=== PATIENT | female | born 1985 | race American Indian/Alaskan Native ===

== ENCOUNTER 2017-01-21 04:16 | Emergency (ER) | payer MEDICAID, OTHER ==
[2017-01-21] MEDS ORDERED: Sodium Chloride 0.9% 1,000 ML IV ONE ×2 (04:21→04:59)
[2017-01-21] MEDS ORDERED: Ondansetron 4 MG/2 ML SDV IV ONE ×2 (04:21→04:58)
[2017-01-21] MEDS ORDERED: Ketorolac 30 MG/ML SDV IVPUSH ONE (04:24)
[2017-01-21] MEDS ORDERED: Iopamidol 612 MG/ML 100 ML Bottle IVPUSH ONE (04:35)
[2017-01-21] MEDS ORDERED: HYDROmorphone 1 MG/ML Syringe IVPUSH ONE (04:41)
[2017-01-21] MEDS ORDERED: Pantoprazole 40 MG Vial IVPUSH ONE (04:42)
[2017-01-21 04:50] LABS: CHLORIDE,CL 101 mmol/L (101-111); SODIUM,NA 136 mmol/L (135-145)
--- NOTE | 2017-01-21 04:50 | EDM.PDOC ---
ED HPI GI/ABDOMINAL - General Chief Complaint: Genitourinary Problem Stated Complaint: IN BY AMBULANCE Time Seen by Provider: 01/21/17 04:20 Source of Information: Reports: Patient History Limitations: Reports: No limitations - History of Present Illness INITIAL COMMENTS - FREE TEXT/NARRATIVE: c/o pain to left flank for 2 days, vomiting last wyatt. chills. urinary incontinence with coughing. Has not been able to anything down and unable to sleep. Pain location varies . One time pointing to alireza, then lower abd, LUQ and epigastric area. Had CT one month ago and in follow up in clinic at [facility] was told she had kidney stones. CT report reviewed clearly notes no stones. Location: LUQ (left) Quality: Reports: stabbing Severity: moderate - Related Data Allergies/ADRs: Allergies Allergy/AdvReac Type Severity Reaction Status Date / Time latex Allergy Mild Rash Verified 02/25/16 11:50 Home Meds: Home Meds Acetaminophen [Tylenol] 650 mg PO Q6HR PRN 02/25/16 [History] Gabapentin [Neurontin] 100 mg PO TID 10/01/16 [History] Past Medical History Respiratory History: Reports: Asthma Other Genitourinary History: vaginal cyst Musculoskeletal History: Reports: Back pain, chronic Psychiatric History: Reports: Addiction Endocrine/Metabolic History: Reports: Obesity/BMI 30+ Immunologic History: Reports: HIV Other Immunologic History: has HIV Other Dermatologic History: cyst of left buttocks - Infectious Disease History Infectious Disease History: Reports: HIV-Human immunodeficiency virus - Past Surgical History HEENT Surgical History: Reports: Tonsillectomy GI Surgical History: Reports: Appendectomy Social & Family History - Family History Family Medical History: Noncontributory - Tobacco Use Smoking Status *Q: Current Every Day Smoker Years of Tobacco use: 17 Packs/Tins Daily: 0.5 Used Tobacco, but Quit: No Second Hand Smoke Exposure: Yes - Caffeine Use Caffeine Use: Reports: Coffee, Energy drinks, Soda - Alcohol Use Days Per Week of Alcohol Use: 0 - Recreational Drug Use Recreational Drug Use: Yes Drug Use in Last 12 Months: Yes Recreational Drug Type: Reports: Marijuana/Hashish Recreational Drug Use Frequency: Daily Recreational Drug Last Use: 9 days ago - Living Situation & Occupation Living situation: Reports: with significant other Occupation: unemployed ED ROS GENERAL - Review of Systems Review Of Systems: See Below Constitutional: Reports: chills HEENT: Reports: Throat pain Respiratory: Reports: No Symptoms Cardiovascular: Reports: No symptoms GI/Abdominal: Reports: Abdominal pain : Reports: incontinence Musculoskeletal: Reports: back pain Skin: Reports: no symptoms Neurological: Reports: No Symptoms Psychiatric: Reports: No symptoms ED EXAM, GI/ABD - Physical Exam Exam: See Below Exam Limited By: No limitations General Appearance: anxious, moderate distress Eyes: bilateral: EOMI Ears: normal external exam Nose: normal inspection Throat/Mouth: Normal inspection Head: atraumatic, normocephalic Neck: normal inspection Respiratory/Chest: no respiratory distress Cardiovascular: normal peripheral pulses GI/Abdominal: normal bowel sounds, soft, tenderness (epigastric LUQ, reported in ambuance was "throwing up blood" Noted she does this every time she ahd vomiting ). No: no distention, tympanic bowel sounds Back Exam: normal inspection. No: CVA tenderness (L), CVA tenderness (R) Extremities: normal inspection Neurological: alert, oriented Psychiatric: anxious Skin Exam: Warm, Dry, Intact Course - Vital Signs Last Recorded V/S: Last Vital Signs Temp 98.2 F 01/21/17 06:00 Pulse 84 01/21/17 06:00 Resp 18 01/21/17 06:00 BP 105/65 01/21/17 06:00 Pulse Ox 100 01/21/17 06:00 - Orders/Labs/Meds Orders: Active Orders 24 hr Category Date Time Status Abdomen Pelvis w wo Cont [CT] Urgent Exams 01/21/17 04:34 Ordered CULTURE STREP A CONFIRMATION [RM] Stat Lab 01/21/17 04:45 Results DRUG SCREEN URINE BIORAD [URCHEM] Stat Lab 01/21/17 06:00 Received STREP SCRN A RAPID W CULT CONF [RM] Stat Lab 01/21/17 04:45 Results Labs: Laboratory Tests 01/21/17 01/21/17 01/21/17 Range/Units 04:23 04:23 04:23 WBC 13.0 H (5.0-10.0) 10^3/uL RBC 5.82 H (4.2-5.4) 10^6/uL Hgb 14.9 (12.0-16.0) g/dL Hct 43.9 (37.0-47.0) % MCV 75.4 L (80-100) fL MCH 25.6 L (27.0-34.0) pg MCHC 33.9 (33.0-35.0) g/dL Plt Count 402 (150-450) 10^3/uL Neut % (Auto) 73.5 (42.2-75.2) % Lymph % (Auto) 18.7 L (20.5-50.1) % [place] % (Auto) 7.4 (2-8) % Eos % (Auto) 0.3 L (1.0-3.0) % Baso % (Auto) 0.1 (0.0-1.0) % Sodium 136 (135-145) mmol/L Potassium 3.4 L (3.6-5.0) mmol/L Chloride 101 (101-111) mmol/L Carbon Dioxide 24.0 (21.0-31.0) mmol/L Anion Gap 14.4 BUN 10 (7-18) mg/dL Creatinine 0.6 (0.6-1.3) mg/dL Est Cr Clr Drug Dosing 132.11 mL/min Estimated GFR (MDRD) > 60 BUN/Creatinine Ratio 16.66 Glucose 141 H (74-105) mg/dL Calcium 9.4 (8.4-10.2) mg/dl Total Bilirubin 0.5 (0.2-1.0) mg/dL AST 18 (10-42) IU/L ALT 13 (10-60) IU/L Alkaline Phosphatase 89 (42-121) IU/L C-Reactive Protein 0.9 (0.0-1.3) mg/dL Total Protein 9.0 H (6.7-8.2) g/dl Albumin 4.6 (3.2-5.5) g/dl Globulin 4.4 Albumin/Globulin Ratio 1.05 Amylase 62 (28-100) U/L Lipase 23 (22-51) U/L HCG, Qual Negative Urine Color (YELLOW) Urine Appearance (CLEAR) Urine pH (5.0-9.0) Ur Specific [place] (1.005-1.030) Urine Protein (NEGATIVE) Urine Glucose (UA) (NEGATIVE) Urine Ketones (NEGATIVE) Urine Occult Blood (NEGATIVE) Urine Nitrite (NEGATIVE) Urine Bilirubin (NEGATIVE) Urine Urobilinogen (0.2-1.0) mg/dL Ur Leukocyte Esterase (NEGATIVE) Urine RBC /HPF Urine WBC (0-5/HPF) /HPF Ur Epithelial Cells /HPF 01/21/17 Range/Units 06:00 WBC (5.0-10.0) 10^3/uL RBC (4.2-5.4) 10^6/uL Hgb (12.0-16.0) g/dL Hct (37.0-47.0) % MCV (80-100) fL MCH (27.0-34.0) pg MCHC (33.0-35.0) g/dL Plt Count (150-450) 10^3/uL Neut % (Auto) (42.2-75.2) % Lymph % (Auto) (20.5-50.1) % [place] % (Auto) (2-8) % Eos % (Auto) (1.0-3.0) % Baso % (Auto) (0.0-1.0) % Sodium (135-145) mmol/L Potassium (3.6-5.0) mmol/L Chloride (101-111) mmol/L Carbon Dioxide (21.0-31.0) mmol/L Anion Gap BUN (7-18) mg/dL Creatinine (0.6-1.3) mg/dL Est Cr Clr Drug Dosing mL/min Estimated GFR (MDRD) BUN/Creatinine Ratio Glucose (74-105) mg/dL Calcium (8.4-10.2) mg/dl Total Bilirubin (0.2-1.0) mg/dL AST (10-42) IU/L ALT (10-60) IU/L Alkaline Phosphatase (42-121) IU/L C-Reactive Protein (0.0-1.3) mg/dL Total Protein (6.7-8.2) g/dl Albumin (3.2-5.5) g/dl Globulin Albumin/Globulin Ratio Amylase (28-100) U/L Lipase (22-51) U/L HCG, Qual Urine Color Yellow (YELLOW) Urine Appearance Clear (CLEAR) Urine pH 5.5 (5.0-9.0) Ur Specific [place] <= 1.005 (1.005-1.030) Urine Protein 30 H (NEGATIVE) Urine Glucose (UA) Negative (NEGATIVE) Urine Ketones Trace H (NEGATIVE) Urine Occult Blood Trace-intact H (NEGATIVE) Urine Nitrite Negative (NEGATIVE) Urine Bilirubin Negative (NEGATIVE) Urine Urobilinogen 0.2 (0.2-1.0) mg/dL Ur Leukocyte Esterase Negative (NEGATIVE) Urine RBC 0-5 /HPF Urine WBC Not seen (0-5/HPF) /HPF Ur Epithelial Cells Few /HPF Meds: Medications Discontinued Medications Generic Name Dose Route Start Last Admin Trade Name Freq PRN Reason Stop Dose Admin Hydromorphone HCl 1 mg 01/21/17 04:41 01/21/17 04:49 Dilaudid IVPUSH 01/21/17 04:42 1 mg ONETIME ONE Administration Sodium Chloride 1,000 mls @ 999 mls/hr 01/21/17 04:21 01/21/17 04:29 Normal Saline IV 01/21/17 05:21 999 mls/hr .BOLUS ONE Administration Sodium Chloride 1,000 mls @ 999 mls/hr 01/21/17 04:59 01/21/17 05:02 Normal Saline IV 01/21/17 05:59 999 mls/hr .BOLUS ONE Administration Iopamidol 100 ml 01/21/17 04:35 Isovue-300 (61%) IVPUSH 01/21/17 04:36 ONETIME ONE Ketorolac Tromethamine 30 mg 01/21/17 04:24 01/21/17 04:29 Toradol IVPUSH 01/21/17 04:25 30 mg ONETIME ONE Administration Ondansetron HCl 4 mg 01/21/17 04:21 01/21/17 04:30 Zofran IV 01/21/17 04:22 4 mg ONETIME ONE Administration Ondansetron HCl 4 mg 01/21/17 04:58 01/21/17 05:03 Zofran IV 01/21/17 04:59 4 mg ONETIME ONE Administration Pantoprazole Sodium 80 mg 01/21/17 04:42 01/21/17 04:55 Protonix Iv IVPUSH 01/21/17 04:43 80 mg .BOLUS ONE Administration Departure - Departure Time of Disposition: 06:21 Disposition: Home, Self-Care 01 Condition: good Clinical Impression: Abdominal pain Qualifiers: Abdominal location: unspecified location Qualified Code(s): R10.9 - Unspecified abdominal pain Nausea & vomiting Qualifiers: Vomiting type: bilious vomiting Qualified Code(s): R11.14 - Bilious vomiting Instructions: Gastritis, Adult, [id number] Forms: ED Department Discharge Additional Instructions: increase fluid intake. no solid food x 4 hours then few small bites, bland low fat diet clinc follow up in one day if symptoms not improving izofran ODT 4mg one every 6 hours as needed for nausea #4 - My Orders Last 24 Hours: My Active Orders 01/21/17 04:34 Abdomen Pelvis w wo Cont [CT] Urgent 01/21/17 04:45 CULTURE STREP A CONFIRMATION [RM] Stat STREP SCRN A RAPID W CULT CONF [RM] Stat 01/21/17 06:00 DRUG SCREEN URINE BIORAD [URCHEM] Stat - Assessment/Plan Last 24 Hours: My Active Orders 01/21/17 04:34 Abdomen Pelvis w wo Cont [CT] Urgent 01/21/17 04:45 CULTURE STREP A CONFIRMATION [RM] Stat STREP SCRN A RAPID W CULT CONF [RM] Stat 01/21/17 06:00 DRUG SCREEN URINE BIORAD [URCHEM] Stat
[2017-01-21 06:00] VITALS: BP 105/65
[2017-01-21] MEDS: Metoclopramide 10 MG/2 ML SDV IVPUSH ONE ×2 (06:31→06:55)
[2017-01-21] MEDS ORDERED: Metoclopramide 10 MG/2 ML SDV IM ONE (06:35)
== END 2017-01-21 07:00 | disposition home or self-care (01) ==
LOC: DL.ED 04:16
DX: R10.12 Left upper quadrant pain (principal); R11.14 Bilious vomiting; F17.210 Nicotine dependence, cigarettes, uncomplicated; Z91.040 Latex allergy status
CPT/HCPCS: 36415; 74178; 80053; 80305; 81001; 82150; 83690; 84703; 85025; 86140; 87081; 87430; 96361; 96372; 96374; 96375; 96376; 99284; C9113; J1170; J1885; J2405; J2765; J7030; Q9967

== ENCOUNTER 2017-04-27 09:47 | Emergency (ER) | payer MEDICAID ==
[2017-04-27 09:56] VITALS: BP 129/91
[2017-04-27] MEDS ORDERED: Acetaminophen/HYDROcodone 325-5 MG Tab PO ONE (10:13)
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
--- NOTE | 2017-04-27 10:48 | CR ---
Clinical history: 31-year-old female right knee pain. Interpretation: Knee joint symmetrically spaced without appreciable change since previous exam 16 July 2014 i.e. no new sign of right knee fracture, dislocation or radiopaque loose joint body. Chronic mild chondr omalacia patella. No arthritic spurs ("osseous fragment adjacent right patella" not appreciated without sunrise view t phillip). No foreign bodies.
== END 2017-04-27 11:12 | disposition home or self-care (01) ==
LOC: DL.ED 09:47
DX: S83.401A Sprain of unspecified collateral ligament of right knee, initial encounter (principal); J45.909 Unspecified asthma, uncomplicated; E66.9 Obesity, unspecified; B20 Human immunodeficiency virus [HIV] disease; F17.210 Nicotine dependence, cigarettes, uncomplicated; Z98.890 Other specified postprocedural states; Z91.040 Latex allergy status; Z90.49 Acquired absence of other specified parts of digestive tract; Y04.0XXA Assault by unarmed brawl or fight, initial encounter
CPT/HCPCS: 73560; 99283; A9270

== ENCOUNTER 2017-07-17 09:23 | Emergency (ER) | payer MEDICAID ==
[2017-07-17 09:52] VITALS: BP 140/91
--- NOTE | 2017-07-17 09:53 | EDM.PDOC ---
ED HPI GENERAL MEDICAL PROBLEM - General Chief Complaint: Lower Extremity Injury/Pain Stated Complaint: BUCKED OFF HORSE. R ANKLE/KNEE PAIN Time Seen by Provider: 07/17/17 09:53 Source of Information: Reports: Patient History Limitations: Reports: No Limitations - History of Present Illness INITIAL COMMENTS - FREE TEXT/NARRATIVE: Patient states she was riding a horse on Thursday. When she was getting off she touched the horses flank causing the horse to matias her off. She was not kicked. She landed on the right ankle/foot. She did not hit her head or lose consciousness. She states the pain is excruciating at a 10/10. She has been walking and bearing weight on the affected foot. She states she has an old ACL tear in the affected limb as well, and the knee is swollen. She states very little pain in the right knee. Onset Date: 07/13/17 Duration: Constant, Getting Worse Location: Reports: Lower Extremity, Right Quality: Reports: Throbbing Severity: Moderate Improves with: Reports: None Worsens with: Reports: Movement Context: Reports: Activity Associated Symptoms: Reports: No Other Symptoms Right Ankle Pain Score (Numeric/FACES): 6 - Related Data Allergies Allergy/AdvReac Type Severity Reaction Status Date / Time latex Allergy Mild Rash Verified 04/27/17 09:52 Home Meds: Home Meds Acetaminophen [Tylenol] 650 mg PO Q6HR PRN 02/25/16 [History] Gabapentin [Neurontin] 100 mg PO TID 10/01/16 [History] Past Medical History Respiratory History: Reports: Asthma Other Genitourinary History: vaginal cyst Musculoskeletal History: Reports: Back Pain, Chronic Psychiatric History: Reports: Addiction Endocrine/Metabolic History: Reports: Obesity/BMI 30+ Immunologic History: Reports: HIV Other Immunologic History: has HIV Other Dermatologic History: cyst of left buttocks - Infectious Disease History Infectious Disease History: Reports: HIV-Human Immunodeficiency Virus - Past Surgical History HEENT Surgical History: Reports: Tonsillectomy GI Surgical History: Reports: Appendectomy Social & Family History - Family History Family Medical History: Noncontributory - Tobacco Use Smoking Status *Q: Current Every Day Smoker Years of Tobacco use: 17 Packs/Tins Daily: 1 Used Tobacco, but Quit: No Second Hand Smoke Exposure: Yes - Caffeine Use Caffeine Use: Reports: Coffee, Soda - Alcohol Use Days Per Week of Alcohol Use: 1 Number of Drinks Per Day: 1 Total Drinks Per Week: 1 - Recreational Drug Use Recreational Drug Use: Yes Drug Use in Last 12 Months: Yes Recreational Drug Type: Reports: Marijuana/Hashish Recreational Drug Use Frequency: Daily Recreational Drug Last Use: 9 days ago - Living Situation & Occupation Living situation: Reports: with Significant Other Occupation: Unemployed Review of Systems - Review of Systems Review Of Systems: ROS reveals no pertinent complaints other than HPI. ED EXAM, GENERAL - Physical Exam Exam: See Below Exam Limited By: No Limitations General Appearance: Alert Head: Atraumatic Neck: Normal Inspection Respiratory/Chest: No Respiratory Distress, Lungs Clear, Normal Breath Sounds Cardiovascular: Normal Peripheral Pulses, Regular Rate, Rhythm GI/Abdominal: Normal Bowel Sounds Back Exam: Normal Inspection Extremities: Pedal Edema, Joint Swelling, Limited Range of Motion, Other (Right foot swelling and ecchymosis, right ankle swelling) Neurological: Alert, Oriented Psychiatric: Normal Affect, Normal Mood Skin Exam: Warm, Dry, Intact Lymphatic: No Adenopathy Course - Vital Signs Last Recorded V/S: Last Vital Signs Temp 98.7 F 07/17/17 09:35 Pulse 119 H 07/17/17 09:35 Resp 18 07/17/17 09:35 BP 140/91 H 07/17/17 09:35 Pulse Ox 98 07/17/17 09:35 - Orders/Labs/Meds Orders: Active Orders 24 hr Category Date Time Status Ankle 2V Rt [CR] Urgent Exams 07/17/17 09:51 Taken Foot Comp Min 3V Rt [CR] Urgent Exams 07/17/17 09:51 Taken Meds: Medications Discontinued Medications Generic Name Dose Route Start Last Admin Trade Name Freq PRN Reason Stop Dose Admin Oxycodone/Acetaminophen 1 tab 07/17/17 10:35 Percocet 325-5 Mg PO 07/17/17 10:36 ONETIME ONE - Radiology Interpretation Free Text/Narrative:: 3V right knee: No sign of acute right knee fracture or dislocation 3V right foot: Acute non-displaced transverse fracture base of the fifth metatarsal with surrounding soft tissue swelling. Small heel spur insertion plantar aponeurosis base of the os calcis No sign of other fracture or dislocation right foot 2 V ankle: Soft tissue swelling over the lateral malleolus. No underlying fracture or dislocation right ankle See rad reports Departure - Departure Time of Disposition: 10:36 Disposition: Home, Self-Care 01 Condition: Good Clinical Impression: Dangelo fracture Qualifiers: Encounter type: initial encounter Fracture type: closed Laterality: right Qualified Code(s): S99.191A - Other physeal fracture of right metatarsal, initial encounter for closed fracture - Discharge Information Instructions: Crutch Use, [id number], Cast or Splint Care, [id number], Metatarsal Fracture Forms: ED Department Discharge Additional Instructions: Elevate and rest the foot Ice when resting No weight bearing on the right foot. Wear the boot when up and around Use crutches to keep weight off right foot Call for podiatry appointment today: Maggy Sorenson at [facility], or Dr. Lewis at [facility] Tylenol or ibuprofen for pain as needed - My Orders Last 24 Hours: My Active Orders 07/17/17 09:51 Ankle 2V Rt [CR] Urgent Foot Comp Min 3V Rt [CR] Urgent - Assessment/Plan Last 24 Hours: My Active Orders 07/17/17 09:51 Ankle 2V Rt [CR] Urgent Foot Comp Min 3V Rt [CR] Urgent
--- NOTE | 2017-07-17 10:32 | CR ---
History: 31-year-old female injured right knee when "bucked off of horse" (2 days ago). Interpretation: AP lateral sunrise views of the right knee confirm small suprapatellar bursal effusio n (internal derangement?) And dense reactive sclerosis patellofemoral surface of patella. Subtle depression and reactive sclerosis lateral aspect tibial plateau suggesting bone contusion. Marginal spur formation medial aspect of the right knee consistent with chronic arthritis. No sign of acute right knee fracture or dislocation.
[2017-07-17] MEDS ORDERED: Acetaminophen/oxyCODONE 325-5 MG Tab PO ONE (10:35)
--- NOTE | 2017-07-17 10:44 | CR ---
Clinical history: 31-year-old female injured left ankle when bucked off of horse 2 days ago. Interpretation: Soft tissue swelling over the lateral malleolus. No underlying fracture or dislocatio n right ankle.
--- NOTE | 2017-07-17 10:46 | CR ---
Clinical history: 31-year-old female injured right ankle and foot when bucked off of horse (2 days ag o). No ankle fracture. Interpretation: Abnormal. Acute nondisplaced transverse fracture base of the fifth metatarsal with surrounding soft tissue swel ling. Small heel spur insertion plantar aponeurosis base of the os calcis. No sign of other fracture or dislocation right foot.
== END 2017-07-17 10:55 | disposition home or self-care (01) ==
LOC: DL.ED 09:23
DX: S92.354A Nondisplaced fracture of fifth metatarsal bone, right foot, initial encounter for closed fracture (principal); J45.909 Unspecified asthma, uncomplicated; B20 Human immunodeficiency virus [HIV] disease; E66.9 Obesity, unspecified; F17.210 Nicotine dependence, cigarettes, uncomplicated; Z91.040 Latex allergy status; Z90.49 Acquired absence of other specified parts of digestive tract; V80.010A Animal-rider injured by fall from or being thrown from horse in noncollision accident, initial encounter
CPT/HCPCS: 73562; 73600; 73630; 99283; A9270

== ENCOUNTER 2017-08-13 19:51 | Emergency (ER) | payer MEDICAID ==
[2017-08-13] MEDS ORDERED: Ketorolac 30 MG/ML SDV IM ONE (21:49)
[2017-08-13] MEDS ORDERED: Promethazine 25 MG/ML SDV IM ONE (21:50)
--- NOTE | 2017-08-13 23:08 | EDM.PDOC ---
ED HPI GENERAL MEDICAL PROBLEM - General Chief Complaint: Headache Stated Complaint: 2 DAY MIGRAINE [id number] Time Seen by Provider: 08/13/17 21:34 Source of Information: Reports: Patient, RN, RN Notes Reviewed History Limitations: Reports: No Limitations - History of Present Illness INITIAL COMMENTS - FREE TEXT/NARRATIVE: Patient presents to the ER with c/o migraine headache. She states she has a hx of headaches and doctors with Dr. Elizabeth in neurology. She states the headache began yesterday at 0500 with a severe headache. She states she had been using caffiene and smoking, but has been trying to quit again. She admits to aches and chills, states she feels feverish and is SOB at times. She states she has pressure to the occiput area and the right eye. She is sensitive to light. She states she has used ibuprofen, tylenol, naproxen, and sulfamate for the headache without relief. Onset: Sudden Onset Date: 08/12/17 Onset Time: 05:00 Location: Reports: Head Quality: Reports: Pressure, Throbbing Improves with: Reports: None Worsens with: Reports: None Associated Symptoms: Reports: Headaches, Nausea/Vomiting Treatments BENCH MANAGER: Reports: Acetaminophen, NSAIDS, Other Medication(s) Right Temporal Headache Pain Score (Numeric/FACES): 10 - Related Data Allergies Allergy/AdvReac Type Severity Reaction Status Date / Time latex Allergy Mild Rash Verified 08/13/17 20:03 Home Meds: Home Meds Acetaminophen [Tylenol] 650 mg PO Q6HR PRN 02/25/16 [History] Gabapentin [Neurontin] 100 mg PO TID 10/01/16 [History] Past Medical History Respiratory History: Reports: Asthma Genitourinary History: Reports: Other (See Below) Other Genitourinary History: vaginal cyst Musculoskeletal History: Reports: Back Pain, Chronic Psychiatric History: Reports: Addiction Endocrine/Metabolic History: Reports: Obesity/BMI 30+ Immunologic History: Reports: HIV Other Immunologic History: has HIV Dermatologic History: Reports: Other (See Below) Other Dermatologic History: cyst of left buttocks - Infectious Disease History Infectious Disease History: Reports: HIV-Human Immunodeficiency Virus - Past Surgical History HEENT Surgical History: Reports: Tonsillectomy GI Surgical History: Reports: Appendectomy Social & Family History - Family History Family Medical History: Noncontributory - Tobacco Use Smoking Status *Q: Current Every Day Smoker Years of Tobacco use: 20 Packs/Tins Daily: 0.2 Used Tobacco, but Quit: No Tobacco Use Comment: Patient states that she is trying to quit Second Hand Smoke Exposure: Yes - Caffeine Use Caffeine Use: Reports: Soda - Alcohol Use Days Per Week of Alcohol Use: 1 Number of Drinks Per Day: 1 Total Drinks Per Week: 1 - Recreational Drug Use Recreational Drug Use: No Drug Use in Last 12 Months: Yes Recreational Drug Type: Reports: Marijuana/Hashish Recreational Drug Use Frequency: Daily Recreational Drug Last Use: 9 days ago - Living Situation & Occupation Living situation: Reports: with Significant Other Occupation: Unemployed ED ROS GENERAL - Review of Systems Review Of Systems: ROS reveals no pertinent complaints other than HPI. - Physical Exam Exam: See Below Exam Limited By: No Limitations General Appearance: Alert, WD/WN, No Apparent Distress Eye Exam: Bilateral Eye: Normal Inspection, PERRL (3-4) Ears: Normal External Exam, Normal Canal, Hearing Grossly Normal, Normal TMs Nose: Normal Inspection, Normal Mucosa, No Blood Throat/Mouth: Normal Inspection, Normal Lips, Normal Teeth, Normal Gums, Normal Oropharynx, Normal Voice, No Airway Compromise Head Exam: Atraumatic, Normocephalic Neck: Normal Inspection, Supple, Non-Tender, Full Range of Motion Respiratory/Chest: No Respiratory Distress, Lungs Clear, Normal Breath Sounds, No Accessory Muscle Use, Chest Non-Tender Cardiovascular: Normal Peripheral Pulses, Regular Rate, Rhythm, No Edema, No Gallop, No JVD, No Murmur, No Rub GI/Abdominal: Normal Bowel Sounds, Soft, Non-Tender, No Organomegaly, No Distention, No Abnormal Bruit, No Mass (Female) Exam: Deferred Rectal (Female) Exam: Deferred Neuro Exam (Abbreviated): Alert, Oriented, CN II-XII Intact, Normal Cognition, Normal Gait, Normal Reflexes, No Motor/Sensory Deficits Back Exam: Normal Inspection, Full Range of Motion, NT Extremities: Normal Inspection, Normal Range of Motion, Non-Tender, No Pedal Edema, Normal Capillary Refill Psychiatric: Normal Affect, Normal Mood Skin Exam: Warm, Dry, Intact, Normal Color, No Rash Course - Vital Signs Last Recorded V/S: Last Vital Signs Temp 97.5 F 08/13/17 20:30 Pulse 63 08/13/17 23:12 Resp 20 08/13/17 23:12 BP 118/66 08/13/17 23:12 Pulse Ox 97 08/13/17 23:12 - Orders/Labs/Meds Meds: Medications Discontinued Medications Generic Name Dose Route Start Last Admin Trade Name Bia PRN Reason Stop Dose Admin Ketorolac Tromethamine 60 mg 08/13/17 21:49 08/13/17 22:15 Toradol IM 08/13/17 21:50 60 mg ONETIME ONE Administration Orphenadrine Citrate 60 mg 08/13/17 22:00 08/13/17 22:13 Norflex IM 60 mg Q12H KING Administration Promethazine HCl 25 mg 08/13/17 21:50 08/13/17 22:14 Phenergan IM 08/13/17 21:51 25 mg ONETIME ONE Administration Departure - Departure Time of Disposition: 23:07 Disposition: Home, Self-Care 01 Condition: Good Clinical Impression: Tension-type headache - Discharge Information Instructions: Recurrent Migraine Headache, [id number] Referrals: Mahesh Cerda MD [Primary Care Provider] - Forms: ED Department Discharge Additional Instructions: Follow up with your primary care facility for headaches. Drink plenty of fluids.
[2017-08-13 23:31] VITALS: BP 118/66
== END 2017-08-13 23:12 | disposition home or self-care (01) ==
LOC: DL.ED 19:51
DX: G44.209 Tension-type headache, unspecified, not intractable (principal); F17.210 Nicotine dependence, cigarettes, uncomplicated; Z91.040 Latex allergy status
CPT/HCPCS: 96372; 99283; J1885; J2360; J2550

== ENCOUNTER 2017-10-19 14:40 | Emergency (ER) | payer MEDICAID ==
[2017-10-19 14:50] VITALS: BP 126/86
[2017-10-19] MEDS ORDERED: Ondansetron 4 MG/2 ML SDV IV ONE (14:54)
[2017-10-19] MEDS ORDERED: Sodium Chloride 0.9% 1,000 ML IV ONE (14:54)
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
[2017-10-19 15:30] LABS: CHLORIDE,CL 101 mmol/L (101-111); SODIUM,NA 137 mmol/L (135-145)
[2017-10-19] MEDS ORDERED: HYDROmorphone 1 MG/ML Syringe IVPUSH ONE (15:55)
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
== END 2017-10-19 16:15 ==
LOC: DL.ED 14:40
DX: S06.2X0A Diffuse traumatic brain injury without loss of consciousness, initial encounter (principal); S82.141A Displaced bicondylar fracture of right tibia, initial encounter for closed fracture; W17.89XA Other fall from one level to another, initial encounter
CPT/HCPCS: 36415; 70450; 72125; 73562; 80053; 80305; 81001; 81025; 85025; 96361; 96374; 96375; 99285; J1170; J2405; J7030

== ENCOUNTER 2017-11-30 23:11 | Emergency (ER) | payer MEDICAID ==
[2017-11-30 23:26] VITALS: BP 128/112
[2017-11-30] MEDS ORDERED: Acetaminophen/HYDROcodone 325-10 MG Tab PO ONE (23:46)
--- NOTE | 2017-11-30 23:54 | EDM.PDOC ---
ED HPI GENERAL MEDICAL PROBLEM - General Chief Complaint: Headache Stated Complaint: BRAIN SURG-MIGRAINES [id number] Time Seen by Provider: 11/30/17 23:46 Source of Information: Reports: Patient History Limitations: Reports: No Limitations - History of Present Illness INITIAL COMMENTS - FREE TEXT/NARRATIVE: states had brain surgery for head bleed last month. been having post surgical headaches and being Tx with norco 5, states had a particularly difficult period over past few days and did take more norco than usual. meds obtained thru Dr Valentin who did write for 30 on 11-30-17 but the pharmacy did not release them until Dr Valentin authorized it and were told it would be thursday. otherwise appetite been fair and did eat dinner tonight of buritos and hot dish without problem. states present headache is of same quality as post op and nothing really different. Right Frontal Head Pain Score (Numeric/FACES): 9 - Related Data Allergies Allergy/AdvReac Type Severity Reaction Status Date / Time latex Allergy Mild Rash Verified 10/19/17 16:36 Home Meds: Home Meds Acetaminophen [Tylenol] 650 mg PO Q6HR PRN 02/25/16 [History] Gabapentin [Neurontin] 100 mg PO TID 10/01/16 [History] Past Medical History Respiratory History: Reports: Asthma Genitourinary History: Reports: Other (See Below) Other Genitourinary History: vaginal cyst Musculoskeletal History: Reports: Back Pain, Chronic Psychiatric History: Reports: Addiction Endocrine/Metabolic History: Reports: Obesity/BMI 30+ Immunologic History: Reports: HIV Other Immunologic History: has HIV Dermatologic History: Reports: Other (See Below) Other Dermatologic History: cyst of left buttocks - Infectious Disease History Infectious Disease History: Reports: HIV-Human Immunodeficiency Virus - Past Surgical History HEENT Surgical History: Reports: Tonsillectomy GI Surgical History: Reports: Appendectomy Other Neurological Surgeries/Procedures: Post- brain surgery on November 2017 Social & Family History - Family History Family Medical History: Noncontributory - Tobacco Use Smoking Status *Q: Current Every Day Smoker Years of Tobacco use: 28 Packs/Tins Daily: 3 Used Tobacco, but Quit: No Second Hand Smoke Exposure: Yes - Caffeine Use Caffeine Use: Reports: Coffee - Alcohol Use Days Per Week of Alcohol Use: 1 Number of Drinks Per Day: 1 Total Drinks Per Week: 1 - Recreational Drug Use Recreational Drug Use: No Drug Use in Last 12 Months: Yes Recreational Drug Type: Reports: Marijuana/Hashish Recreational Drug Use Frequency: Daily Recreational Drug Last Use: 9 days ago - Living Situation & Occupation Living situation: Reports: with Significant Other Occupation: Unemployed ED ROS GENERAL - Review of Systems Review Of Systems: ROS reveals no pertinent complaints other than HPI. - Physical Exam Exam: See Below Exam Limited By: No Limitations General Appearance: Alert, WD/WN, Mild Distress, Moderate Distress, Other ( crying) Ears: Hearing Grossly Normal Throat/Mouth: Normal Voice, No Airway Compromise Head Exam: Atraumatic Neck: Non-Tender, Full Range of Motion Respiratory/Chest: No Respiratory Distress Cardiovascular: Regular Rate, Rhythm GI/Abdominal: Soft, Non-Tender Neuro Exam (Abbreviated): Alert, Oriented, Normal Cognition, Normal Gait, No Motor/Sensory Deficits Psychiatric: Tearful Skin Exam: Warm, Dry, Normal Color Course - Vital Signs Last Recorded V/S: Last Vital Signs Temp 36.8 C 11/30/17 23:17 Pulse 114 H 11/30/17 23:17 Resp 18 11/30/17 23:17 BP 128/112 H 11/30/17 23:17 Pulse Ox 100 11/30/17 23:17 - Orders/Labs/Meds Orders: Active Orders 24 hr Category Date Time Status Acetaminophen/HYDROcodone [[place] 325-10 MG] Med 11/30/17 23:46 Once 1 tab PO ONETIME ONE - Re-Assessments/Exams Free Text/Narrative Re-Assessment/Exam: 11/30/17 23:55 explained to pt re' current legality on pain med thru the ER. pt concurred. Departure - Departure Time of Disposition: 23:56 Disposition: Home, Self-Care 01 Condition: Good Clinical Impression: History of closed head injury - Discharge Information Additional Instructions: 1) rest 2) follow up with family doctor rx given; tramadol 50mg qid prn x 4 - My Orders Last 24 Hours: My Active Orders 11/30/17 23:46 Acetaminophen/HYDROcodone [[place] 325-10 MG] 1 tab PO ONETIME ONE - Assessment/Plan Last 24 Hours: My Active Orders 11/30/17 23:46 Acetaminophen/HYDROcodone [[place] 325-10 MG] 1 tab PO ONETIME ONE
== END 2017-12-01 00:05 | disposition home or self-care (01) ==
LOC: DL.ED 23:11
DX: R51 Headache (principal); F17.210 Nicotine dependence, cigarettes, uncomplicated; Z91.040 Latex allergy status
CPT/HCPCS: 99283; A9270

== ENCOUNTER 2021-11-21 10:23 | Emergency (ER) | payer MEDICAID ==
[2021-11-21] MEDS ORDERED: Sodium Chloride 0.9% 10 ML Syringe FLUSH PRN (11:16)
[2021-11-21 11:37] VITALS: BP 106/79; PULSE 116
[2021-11-21 11:55] LABS: ANION GAP 15.7 mEq/L (7-13); CHLORIDE,CL 101 mmol/L (98-107); SODIUM,NA 138 mmol/L (136-145)
[2021-11-21] MEDS ORDERED: Sodium Chloride 0.9% 1,000 ML IV ONE (14:36)
[2021-11-21] MEDS ORDERED: Ondansetron 4 MG/2 ML SDV IVPUSH ONE (14:36)
== END 2021-11-21 15:20 ==
LOC: DL.ED 10:23
DX: O03.9 Complete or unspecified spontaneous abortion without complication (principal); Z91.040 Latex allergy status
CPT/HCPCS: 36415; 76815; 80053; 84702; 85025; 86900; 86901; 99285; J7030